=== PATIENT | female | born 1960 | race Caucasian/White ===

== ENCOUNTER 2018-12-22 05:08 | Emergency (ER) | payer OTHER ==
[~2018-12-22] VITALS: Ht 160 cm; Wt 68.0 kg
[~2018-12-22 05:08] MED LIST: ECO81 PO; ELA25 PO; ELA50 PO; GLU500 PO; METFORMIN HCL1000 MG PO; NOR10T PO; PROPRANOLOL HCL20 MG PO; ROBAXIN-750750 MG PO; VASOTEC20 MG PO; XAN5 PO; ZESTRIL20 MG PO; ZOC20 PO; ZOCOR40 MG PO; [UNRECOGNIZED DRUG - OTHER] PO
[2018-12-22 05:12] VITALS: Ht 160 cm; Wt 68.0 kg
[2018-12-22 07:50] VITALS: BP 124/80
== END 2018-12-22 07:50 | disposition home or self-care (01) ==
LOC: ED 05:08
DX: J20.8 Acute bronchitis due to other specified organisms (principal); I10 Essential (primary) hypertension; E11.9 Type 2 diabetes mellitus without complications; E78.00 Pure hypercholesterolemia, unspecified; Z88.0 Allergy status to penicillin
CPT/HCPCS: 87804; J1885; Q0092

== ENCOUNTER 2019-09-01 07:18 | Emergency (ER) | payer OTHER ==
[~2019-09-01] VITALS: Ht 157.5 cm; Wt 65.8 kg
[2019-09-01 07:24] VITALS: Ht 157.5 cm; Wt 65.8 kg
[2019-09-01 11:38] VITALS: BP 120/65
== END 2019-09-01 11:38 | disposition home or self-care (01) ==
LOC: ED 07:18
DX: J44.1 Chronic obstructive pulmonary disease with (acute) exacerbation (principal); E11.9 Type 2 diabetes mellitus without complications; I10 Essential (primary) hypertension; E78.00 Pure hypercholesterolemia, unspecified; M41.9 Scoliosis, unspecified; Z88.0 Allergy status to penicillin
CPT/HCPCS: 87804; J2930